=== PATIENT | female | born 1960 | race Caucasian/White ===

== ENCOUNTER 2018-06-07 08:24 | Outpatient (CLI) | payer BC ==
--- NOTE | 2018-06-07 16:58 | MMO ---
BILATERAL SCREENING MAMMOGRAMS: DATE: 06/07/18 Reference made to prior mammograms which dated back to April 2012. This patient's mammogram was interpreted with the assistance of computer-aided detection. FINDINGS: There are scattered fibroglandular elements bilaterally. No evidence of new dominant mass or suspicio us clustering of microcalcifications. There has been no significant interval change. IMPRESSION: BIRADS 2: Benign Finding(s) Annual screening mammography is recommended. POS: [facility]
== END 2018-06-07 08:25 | disposition home or self-care (01) ==
LOC: SCSMAMMO 08:24
PROVIDERS: ATTEND Family Medicine
DX: Z12.31 Encounter for screening mammogram for malignant neoplasm of breast (principal)
CPT/HCPCS: 77067

== ENCOUNTER 2018-12-10 07:45 | Outpatient (CLI) | payer BC ==
--- NOTE | 2018-12-10 09:30 | MRI ---
MRI Brain W WO Con: 12/10/2018 12:00 AM CLINICAL HISTORY: Left hearing loss, recent onset. COMPARISON: None. FINDINGS: Extra axial spaces: Mild prominence related to parenchymal volume loss. Acute infarction: None. Ventricular system: Normal in size and morphology for the patient's age. Basal cisterns: Normal. Cerebral parenchyma: Microvascular ischemic changes. Midline shift: None. Cerebellum: Normal. Brainstem: Normal. Paranasal sinuses:Left mastoid effusion No pathologic intra-axial enhancement. CP angle cisterns: No evidence of mass or pathologic enhancement. IMPRESSION:No acute intracranial abnormality. Left mastoid effusion. Correlate clinically. No pathologic enhancement or mass of either CP angle cistern.
== END 2018-12-10 07:46 | disposition home or self-care (01) ==
LOC: SCSMRI 07:45
PROVIDERS: ATTEND Otolaryngology Plastic Surgery within the Head & Neck
DX: H90.42 Sensorineural hearing loss, unilateral, left ear, with unrestricted hearing on the contralateral side (principal); H74.8X2 Other specified disorders of left middle ear and mastoid
CPT/HCPCS: 70553